=== PATIENT | female | born 1975 | race American Indian/Alaskan Native ===

== ENCOUNTER 2021-02-20 05:59 | Observation (INO) | payer BC ==
[2021-02-14 13:11] LABS: Hematocrit 34.9 % (30.3-42.9); Hemoglobin 11.5 gm/dl (10.1-14.3); Mean Corpuscular HGB Conc 33 % (30-34); Mean Corpuscular Volume 86 fl (79-97); Platelet Count 439 K/mm3 (140-440); Red Blood Count 4.07 M/mm3 (3.65-5.03); Red Cell Distribution Width 15.5 % (13.2-15.2)
[2021-02-14 15:48] LABS: Total Cells Counted 100
[2021-02-14 15:49] LABS: Ovalocytes 3+; Platelet Estimate Consistent w Auto
--- NOTE | 2021-02-19 14:32 | History and Physical Report ---
History of Present Illness Date of examination: 02/14/21 Chief complaint: Menorhagia, dysmenorrhea and Genetic susceptibility to malignant neoplasm of ovary History of present illness: Past History : 3 Term Births: 2 Living Children: 2 Spont. 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 Allergies-seasonal Past Surgical History: Reviewed history from 12/08/2020 and no changes required: Tubal Ligation (2000) Family History Summary: Reviewed history Last on 11/01/2020 and no changes required:02/19/2021 Mother - Has Family History Breast Cancer - +BRCA - Entered On: 04/15/2019 Other Family Member - Has No Family History of Uterine Cancer - Entered On: 11/16/2018 Other Family Member - Has No Family History of Small Bowel Cancer - Entered On: 11/16/2018 Other Family Member - Has No Family History of Stomach Cancer - Entered On: 11/16/2018 Other Family Member - Has No Family History of Pancreatic Cancer - Entered On: 11/16/2018 Other Family Member - Has No Family History of Ovarvian Cancer - Entered On: 11/16/2018 Other Family Member - Has No Family History of Kidney/Urinary Tract Cancer - Entered On: 11/16/2018 Other Family Member - Has No Family History of Spontaneous DVT-PE - Entered On: 11/16/2018 Other Family Member - Has No Family History of Brain Cancer - Entered On: 11/16/2018 Other Family Member - Has No Family History of Biliary Tract Cancer - Entered On: 11/16/2018 MGM - Has Family History Breast Cancer - diagnosed age 35, age45 - Entered On: 11/16/2018 General Comments - FH: Maternal aunt Throat cancer Social History: Reviewed history from 11/14/2017 and no changes required: Patient is single Smoking History: Patient has never smoked. Risk Factors: Smoked Tobacco Use: Never smoker Smokeless Tobacco Use: Never Passive Smoke Exposure: no HIV High Risk Behavior: no Exercise: yes Times/wk: 2 Seatbelt Use: 100 % PAP Smear History: Date of Last PAP Smear: 11/01/2020 Results: Normal Alcohol Use: yes Drinks per day: social Drug Use: no Previous Tobacco Use: Signed On - 12/08/2020 Smoked Tobacco Use: Never smoker Smokeless Tobacco Use: Never Passive Smoke Exposure: no HIV High Risk Behavior: no Exercise: yes Times/wk: 2 Type of Exercise: walking Seatbelt Use: 100 % Alcohol Use: yes Type: occ Drinks per day: social Drug Use: no Review of Systems Complains of menorrhagia and painful periods. Denies vaginal discharge, incontinence, dysuria, hematuria, urinary frequency, amenorrhea, abnormal vaginal bleeding, pelvic pain, genital sores, decreased libido, painful sex, urinary urgency, hot flashes, vaginal dryness, vaginal itching and vaginal odor. The review of systems is negative for General, CV, Resp, GI, Endo, Breast, MS, Derm, Neuro, Psych, Eyes, ENT, Allergy and Heme. Physical Exam Appearance: well developed, well nourished, no acute distress Other Exams Lungs: no rales, rhonchi, or wheezes Heart: S1, S2, no murmur, rub, or gallop Genitourinary Exam Uterus: deferred for EUA Impression & Recommendations: Problem # 1: Menorrhagia (ICD-626.2) ([id number]) Diagnosis explained to patient . Discussed with patient various medical, surgical and radiological therapies common for treatment including, but not limi tam to, hysterectomy and endometrial ablation. Discussed risks and benefits of laparotomy, laparoscopy, vaginal and robotic assisted approaches for hysterectomies. Patient desires definitive treatment in the form of robot assisted laparoscopic total hysterectomy with removal of both fallopian tubes and ovaries. The risks and alternatives for this surgery were reviewed with the patient. She was informed of the risks of the surgery including, but not limited to, pain, infection, bleeding possibly heavy enough to require a blood transfusion with associated risks of infections (hepatitis and HIV) and transfusion reactions, possible damage to bowel, bladder or ureter(s) and surrounding organs. . Patient understands that this surgery will make her sterile. Indications to abort a robotic/laparoscopic procedure and perform an open procedure were explained. Patient understands once her ovaries are removed she will become menopausal. Discussed use of hormone therapy. Risks reviewed with patient but not limited to:CVA, [place], DVT, PE, Breast cancer, liver problems. Patient counseled that she should use the lowest effective dose of HRT/ERT for the shortest period of time Other options for offered, encouraged to exercise, increase water intake, decrease Na+ and carbohydrate intake. Patient advised the small risks of spreading of malignancy if morcellation is required during the surgery patient understands and approves performing if necessary. Questions answered. Consent reviewed and signed The patient was instructed/informed the following: The normal length of hospital stay for this procedure. Nothing to eat or drink after midnight the evening prior to surgery.. Pre-op instruction sheets given. Wound care instructions given. Problem # 2: Dysmenorrhea (ICD-625.3) (WGX16-V68.6) It was extensively explained to her that her pain may persist, recur or change in nature due to the difficulty with determining the exact etiology(ies) of chronic pelvic pain or development of adhesions. She declined other treatment options at this time. Questions were encouraged and answered Problem # 3: Genetic susceptibility to malignant neoplasm of ovary (ICD-V84.02) (CFO06-L55.02) Will hold HRT at this time and she will discuss usage with her breast surgeon. Orders: ] ] Medications and Allergies Allergies Allergy/AdvReac Type Severity Reaction Status Date / Time No Known Allergies Allergy Verified 02/13/21 19:08 Home Medications Medication Instructions Recorded Confirmed Last Taken Type No Known Home Medications [No 02/13/21 02/13/21 Unknown History Reported Home Medications] Active Meds: Active Medications Cefazolin Sodium 3 gm/ Sodium (Chloride) 100 mls @ 100 mls/30 min IV PREOP NR; Protocol Exam Vital Signs Temp Pulse Resp BP Pulse Ox 98.3 F 85 16 111/81 99 02/14/21 11:05 02/14/21 11:05 02/14/21 11:05 02/14/21 11:05 02/14/21 11:05 Results - Labs 02/14/21 06:00 Assessment and Plan - Patient Problems (1) Excessive and frequent menstruation with regular cycle Status: Acute (2) Dysmenorrhea Status: Acute (3) Genetic susceptibility to malignant neoplasm of ovary Status: Chronic (4) Body mass index (BMI) of 50-59.9 in adult Status: Chronic
[2021-02-20] MEDS ORDERED: BACTERIOSTATIC SODIUM CHLORIDE 0.9% 30 ML VIAL INFILTRATI ONE (06:28)
[2021-02-20] MEDS ORDERED: LACTATED RINGERS 1,000 ML IV SCH ×2 (06:30→13:30)
[2021-02-20] MEDS ORDERED: ONDANSETRON 4 MG/2 ML INJ ONE ×2 (07:10→10:48)
[2021-02-20] MEDS ORDERED: LIDOCAINE MPF (2%) 20 MG/1 ML VIAL 5 ML ONE (07:10)
[2021-02-20] MEDS ORDERED: GLYCOPYRROLATE 0.4 MG/2 ML INJ ONE (07:11)
[2021-02-20] MEDS ORDERED: ROCURONIUM 50 MG/5 ML INJ IV ONE ×2 (07:11→09:00)
[2021-02-20] MEDS ORDERED: fentaNYL 100 MCG/2 ML INJ ONE ×2 (07:15→07:37)
[2021-02-20] MEDS ORDERED: KETAMINE/STERILE WATER 50 MG/ML SYRINGE ONE (07:15)
[2021-02-20] MEDS ORDERED: propofoL 200 MG/20 ML VIAL IV ONE (07:15)
[2021-02-20] MEDS ORDERED: NEOMY 40 MG/POLYMYXIN B 200,000 UNITS/ML (GU) AMPULE IR ONE (07:26)
--- NOTE | 2021-02-20 07:30 | Anesthesia Consultation ---
Anesthesia Consult and Med Hx Date of service: 02/20/21 - Airway Anesthetic Teeth Evaluation: Good ROM Head & Neck: Adequate Mental/Hyoid Distance: Adequate Mallampati Class: Class II Intubation Access Assessment: Probably Good - Pulmonary Exam CTA: Yes - Cardiac Exam Cardiac Exam: RRR - Pre-Operative Health Status ASA Pre-Surgery Classification: ASA2 Proposed Anesthetic Plan: General Nerve Block: Bilateral TAP block - Pulmonary Hx Smoking: No Hx Asthma: No - Cardiovascular System Hx Hypertension: No - Central Nervous System Hx Neuromuscular Disorder: No Hx Psychiatric Problems: No - Other Systems Hx Alcohol Use: Yes (Occas) Hx Substance Use: No Hx Cancer: No Hx Obesity: Yes (BMI 50) - Additional Comments Anesthesia Medical History Comments: No history of anesthesia complications
--- NOTE | 2021-02-20 07:31 | Anesthesia Day of Surgery ---
Anesthesia Day of Surgery - Day of Surgery Patient Examined: Yes Patient H&P Reviewed: Yes Patient is NPO: Yes
[2021-02-20] MEDS ORDERED: MIDAZOLAM 2 MG/2 ML INJ ONE ×2 (07:37→07:51)
[2021-02-20] MEDS ORDERED: ACETAMINOPHEN 500 MG TAB ONE (07:38)
[2021-02-20] MEDS ORDERED: CELECOXIB 200 MG CAP ONE (07:38)
[2021-02-20] MEDS ORDERED: BUPIVACAINE/PF (0.25%) 2.5 MG/ML 30 ML VIAL INFILTRATI ONE (07:39)
[2021-02-20] MEDS ORDERED: dexAMETHasone 4 MG/ML VIAL ONE (07:39)
[2021-02-20] MEDS ORDERED: MAGNESIUM OXIDE 400 MG TAB PO ONE (07:39)
[2021-02-20] MEDS ORDERED: dexAMETHasone 20 MG/5 ML VIAL ONE (08:58)
[2021-02-20] MEDS ORDERED: ACETAMINOPHEN 500 MG TAB PO SCH (09:00)
[2021-02-20] MEDS ORDERED: MAGNESIUM OXIDE 400 MG TAB PO SCH (09:00)
[2021-02-20] MEDS ORDERED: CELECOXIB 200 MG CAP PO NR (09:00)
[2021-02-20] MEDS ORDERED: BUPIVACAINE/PF (0.5%) 5 MG/1 ML 30 ML VIAL INFILTRATI ONE ×2 (09:36→10:48)
[2021-02-20] MEDS ORDERED: NEOSTIGMINE 10MG/10 ML INJ MDV ONE (10:06)
[2021-02-20] MEDS ORDERED: SODIUM CHLORIDE 0.9% IRRIG SOLN 2000 ML IR ONE (10:49)
[2021-02-20] MEDS ORDERED: LACTATED RINGERS 1,000 ML ONE (10:53)
--- NOTE | 2021-02-20 11:14 | Post Operative Note ---
Pre-op diagnosis: menorrhagia, dysmenorrhea, genetic susceptibility to ovarian cancer Post-op diagnosis: other (Pelvic adhesions, morbid obesity) Procedure: Robotic assisted laparoscopic total hysterectomy with bilateral salpingo oophorectomy, lysis of adhesions, removal of displaced Filshie clips, repair of vaginal laceration Anesthesia: ALY Surgeon: PHILLIP WOLFF (Joellen Irizarry) Estimated blood loss: 50-100ml Pathology: list (Uterus cervix both ovaries and fallopian tubes and Filshie clips) Specimen disposition: to lab Condition: stable Disposition: PACU
[2021-02-20] MEDS ORDERED: KETOROLAC 30 MG/1 ML INJ ONE (11:21)
[2021-02-20] MEDS ORDERED: HYDROmorphone 1 MG/1 ML INJ ONE ×2 (11:27→11:37)
[2021-02-20] MEDS: HYDROmorphone 1 MG/1 ML INJ IV PRN ×4 (11:30→12:10)
--- NOTE | 2021-02-20 11:47 | Operative Report ---
Operative Report Operative Report: Date: 02/20/2021 Preoperative diagnosis: 1. Menorrhagia 2. Dysmenorrhea 3. Body mass index of 50.2 kg/m 4. Genetic susceptibility to malignant neoplasm of ovary Postoperative diagnosis: 1. Menorrhagia 2. Dysmenorrhea 3. Body mass index of 50.2 kg/m 4. Genetic susceptibility to malignant neoplasm of ovary 5. Pelvic adhesion 6. Vaginal laceration 7. Displaced Filshie clips Procedure: 1. Robotic-assisted laparoscopic total hysterectomy with bilateral Salpingo-oophorectomy 2. Lysis of adhesions 3. Removal of Filshie clips 4. Repair of vaginal laceration Surgeon: Carlene Spann MD Fabric Designer: Joellen Irizarry CSA Anesthesiologist: Dr. Robins Anesthesia: General endotracheal anesthesia EBL: Approximately 100 mL Findings: EUA: Uterus unable to be palpated due to obesity. Uterus was sounded to 12 cm. Grossly normal tubes and ovaries. Procedure: Patient was taken to the OR and placed in the supine position. General anesthesia was induced and an oral gastric tube was placed. Her neck and head were placed on foam support. Foam eye protection with goggles were secured in place. Then foam face protection was placed and secured. Foam shoulder pads were then positioned on her shoulders for Trendelenburg p ositioning. She was then placed in dorsolithotomy position. Exam under anesthesia as above. The abdomen and vagina were then prepped and draped in the usual sterile fashion. Timeout was performed. A Chaney catheter was inserted into the bladder with drainage of clear yellow urine. The operative speculum was introduced into the vagina and the anterior lip of the cervix was grasped with single-toothed tenaculum. The uterus was sounded to 12 cm. The cervix was progressively dilated to allow the large V care uterine manipulator. The bulb of the manipulator was inflated and the speculum and tenaculum were removed. The cup of the manipulator was placed around the cervix and the blue occluder of the manipulator was properly positioned in the vagina and secured. A laparotomy sponge that was saturated with a solution of polymyxin and saline was placed in the vagina to ensure pneumoperitoneum. Sterile gloves were placed and attention was turned to the abdomen. A 10 mm midline vertical supraumbilical incision was made approximately 10 cm superior to the elevated fundus of the uterus. A 10-12 mm trocar with the laparoscope and camera attached was introduced through this incision under direct visualization. The abdomen was insufflated. No obvious bowel, bladder, ureteral, or major vascular injury was noted. The patient was then placed in steep Trendelenburg position and the following trochars were placed under direct visualization: 8 mm robotic trochars were placed through incisions made in the bilateral midclavicular lower abdominal region approximately 10 cm lateral to the midline incision, and a 5 mm trocar was placed through an incision made in the right lower lateral pelvis. The 10 mm laparoscope was then replaced by a 5 mm laparoscope that was placed through the 5 millimeter lateral trocar. The 12 mm trocar was then removed and the Theodore Rodríguez fascial closure device was placed through the incision and a 0 Vicryl was placed through the fascia. Once the suture was secured the 12 mm trocar was reintroduced. Once the trochars were in the appropriate positions, the da Lupe robot system was engaged. The EndoShears and bipolar device was placed through the 8 mm trochars and positioned then attention was turned to the console. Pelvic washings were obtained and sent to pathology for permanent. The epiploica of the bowel on the left was adhesed to the left fallopian tube. Adhesions were released with both blunt and sharp dissection. then the utero-ovarian ligaments were clamped, cauterized and incised bilaterally using 30 W of energy. Then the round ligaments were clamped, cauterized and incised bilaterally. The anterior leaf of the broad ligament was elevated and with careful blunt and sharp dissection the bladder flap was created and dissected away from the lower uterine segment and cervix. While creating the bladder flap the Filshie clips were noted to be adhesed to the midline lower uterine segment and cervix under the bladder flap. With careful sharp and blunt dissection the Filshie clips were removed. The remainder of the bladder flap was created. No obvious bladder injury was noted. The posterior leaf of the broad ligament was dissected away from the uterine vessels. The cup of the uterine manipulator was palpated both anteriorly and posteriorly. The bladder was further dissected away from the lower uterine segment. The uterine vessels were then clamped and cauterized bilaterally. Blanching of the uterus was then noted. Attention was again turned to the anterior lower uterine segment and the bladder was confirmed to be away from the operative field. Then attention was turned again to the posterior where the cup of the manipulator was palpated and a colpotomy was performed down to the cup. The incision was extended in the lateral position to the uterine vessels that were again clamped and cauterized and incised. Continuing along the cup of the manipulator in a circumferential manner the colpotomy was completed. The uterus and cervix were then removed through the vaginal incision. The pelvis was irrigated with warm normal saline. A moist laparotomy sponge was placed in the vagina to maintain pneumoperitoneum. Then attention was turned to the adnexa where the ureters were noted to be away from the operative field. The left ovary with tube was elevated and the infundibulopelvic ligament was clamped, cauterized, incised and released from the pelvic sidewall. The ovary with tubes were removed through the vagina. The same procedure was performed on the right fallopian tube and ovary. No obvious ureteral injury was noted. The vagina cuff was reapproximated using V LOC 180 suture. Then a J stitch was performed to secure the suture. Again the pelvis was copiously irrigated with polymixin in warm normal saline. The laparotomy sponge was removed from the vagina. No obvious evidence of bowel, bladder, ureteral, or major vascular injury was noted. The pelvis was irrigated with warm normal saline. Once hemostasis was noted, Maryjane was applied to the operative field to ensure hemostasis. Then the instruments were removed, the robot was disengaged. The 10-12 mm trocar was removed and the fascia was ligated with the 0 Vicryl suture that was placed at the beginning of the procedure. The patient was taken out of Trendelenburg position, the abdomen was desufflated, the remaining trochars were removed. Incisions were reapproximated using 4-0 Monocryl in a subcuticular manner. The incisions were infused with half percent Marcaine without epinephrine. Surgiseal was placed over the other incisions. Hemostasis was noted. The vagina was then inspected, the cuff was palpated and visualized to be intact however bleeding was noted from a midline vertical proximal vaginal laceration. This laceration was repaired with 3-0 Vicryl on a SH needle in a [id number] manner x2. Hemostasis was noted. Clear yellow urine was draining into the Chaney bag from the bladder at the end of the procedure. Counts were correct 3. Patient was taken to recovery room in stable condition.
[2021-02-20] MEDS ORDERED: diphenhydrAMINE 50 MG/ML VIAL ONE (12:25)
[2021-02-20] MEDS ORDERED: MEPERIDINE 25 MG/1 ML INJ ONE (12:25)
[2021-02-20] MEDS ORDERED: MEPERIDINE 25 MG/1 ML INJ IV PRN (12:25)
[2021-02-20] MEDS ORDERED: diphenhydrAMINE 50 MG/ML VIAL IV PRN (12:25)
[2021-02-20] MEDS ORDERED: METOCLOPRAMIDE 10 MG/2 ML INJ IV PRN (13:30)
[2021-02-20] MEDS ORDERED: MORPHINE 4 MG/1 ML INJ IV PRN (14:00)
[2021-02-20] MEDS ORDERED: ONDANSETRON 4 MG/2 ML INJ IV PRN (14:00)
[2021-02-20] MEDS ORDERED: traMADol 50 MG TAB PO PRN (14:00)
[2021-02-20] MEDS ORDERED: ONDANSETRON 4 MG ODT TAB PO PRN (14:00)
[2021-02-20] MEDS ORDERED: IBUPROFEN 800 MG TAB PO PRN (14:00)
[2021-02-20] MEDS ORDERED: MORPHINE 2 MG/1 ML INJ IV PRN (14:00)
[2021-02-20] MEDS ORDERED: ACETAMINOPHEN 325 MG TAB PO SCH (14:30)
[2021-02-20] MEDS: ACETAMINOPHEN 500 MG TAB PO SCH ×2 (15:23→20:30)
[2021-02-20] MEDS ORDERED: ceFAZolin/NS 1 GM/50 ML 1 GM/50 ML BAG IV SCH (16:00)
[2021-02-20] MEDS: KETOROLAC 30 MG/1 ML INJ IV SCH (17:29)
--- NOTE | 2021-02-20 17:54 | Post Anesthesia Evaluation ---
- Post Anesthesia Evaluation Patient Participated: Yes Airway Patent: Yes Stable Respiratory Function: Yes Nausea/Vomiting: No Temp > 96.8F: Yes Pain Manageable: Yes Adequeate Hydration: Yes Anesthesia Complications: No Block Receding Appropriately: Not Applicable Patient on Ventilator: No
--- NOTE | 2021-02-20 18:41 | Progress Note ---
Assessment and Plan Procedure explained, plan of care discussed. She voiced understanding - Patient Problems (1) Excessive and frequent menstruation with regular cycle Current Visit: No Status: Resolved (2) Dysmenorrhea Current Visit: No Status: Resolved (3) Genetic susceptibility to malignant neoplasm of ovary Current Visit: No Status: Chronic (4) Body mass index (BMI) of 50-59.9 in adult Current Visit: No Status: Chronic (5) History of robot-assisted laparoscopic hysterectomy Current Visit: Yes Status: Acute (6) S/P bilateral salpingo-oophorectomy Current Visit: Yes Status: Acute Subjective - Subjective Interval history: Past History : 3 Term Births: 2 Living Children: 2 Spont. 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 Allergies-seasonal Past Surgical History: Reviewed history from 12/08/2020 and no changes required: Tubal Ligation (2000) Family History Summary: Reviewed history Last on 11/01/2020 and no changes required:02/19/2021 Mother - Has Family History Breast Cancer - +BRCA - Entered On: 04/15/2019 Other Family Member - Has No Family History of Uterine Cancer - Entered On: 11/16/2018 Other Family Member - Has No Family History of Small Bowel Cancer - Entered On: 11/16/2018 Other Family Member - Has No Family History of Stomach Cancer - Entered On: 11/16/2018 Other Family Member - Has No Family History of Pancreatic Cancer - Entered On: 11/16/2018 Other Family Member - Has No Family History of Ovarvian Cancer - Entered On: 11/16/2018 Other Family Member - Has No Family History of Kidney/Urinary Tract Cancer - Entered On: 11/16/2018 Other Family Member - Has No Family History of Spontaneous DVT-PE - Entered On: 11/16/2018 Other Family Member - Has No Family History of Brain Cancer - Entered On: 11/16/2018 Other Family Member - Has No Family History of Biliary Tract Cancer - Entered On: 11/16/2018 MGM - Has Family History Breast Cancer - diagnosed age 35, age45 - Entered On: 11/16/2018 General Comments - FH: Maternal aunt Throat cancer Social History: Reviewed history from 11/14/2017 and no changes required: Patient is single Smoking History: Patient has never smoked. Risk Factors: Smoked Tobacco Use: Never smoker Smokeless Tobacco Use: Never Passive Smoke Exposure: no HIV High Risk Behavior: no Exercise: yes Times/wk: 2 Seatbelt Use: 100 % PAP Smear History: Date of Last PAP Smear: 11/01/2020 Results: Normal Alcohol Use: yes Drinks per day: social Drug Use: no Previous Tobacco Use: Signed On - 12/08/2020 Smoked Tobacco Use: Never smoker Smokeless Tobacco Use: Never Passive Smoke Exposure: no HIV High Risk Behavior: no Exercise: yes Times/wk: 2 Type of Exercise: walking Seatbelt Use: 100 % Alcohol Use: yes Type: occ Drinks per day: social Drug Use: no Review of Systems Complains of menorrhagia and painful periods. Denies vaginal discharge, incontinence, dysuria, hematuria, urinary fr equency, amenorrhea, abnormal vaginal bleeding, pelvic pain, genital sores, decreased libido, painful sex, urinary urgency, hot flashes, vaginal dryness, vaginal itching and vaginal odor. The review of systems is negative for General, CV, Resp, GI, Endo, Breast, MS, Derm, Neuro, Psych, Eyes, ENT, Allergy and Heme. Physical Exam Appearance: well developed, well nourished, no acute distress Other Exams Lungs: no rales, rhonchi, or wheezes Heart: S1, S2, no murmur, rub, or gallop Genitourinary Exam Uterus: deferred for EUA Impression & Recommendations: Problem # 1: Menorrhagia (ICD-626.2) ([id number]) Diagnosis explained to patient . Discussed with patient various medical, surgical and radiological therapies common for treatment including, but not limited to, hysterectomy and endometrial ablation. Discussed risks and benefits of laparotomy, laparoscopy, vaginal and robotic assisted approaches for hysterectomies. Patient desires definitive treatment in the form of robot a ssisted laparoscopic total hysterectomy with removal of both fallopian tubes and ovaries. The risks and alternatives for this surgery were reviewed with the patient. She was informed of the risks of the surgery including, but not limited to, pain, infection, bleeding possibly heavy enough to require a blood transfusion with associated risks of infections (hepatitis and HIV) and transfusion reactions, possible damage to bowel, bladder or ureter(s) and surrounding organs. . Patient understands that this surgery will make her sterile. Indications to abort a robotic/laparoscopic procedure and perform an open procedure were explained. Patient understands once her ovaries are removed she will become menopausal. Discussed use of hormone therapy. Risks reviewed with patient but not limited to:CVA, [place], DVT, PE, Breast cancer, liver problems. Patient counseled that she should use the lowest effective dose of HRT/ERT for the shortest period of time Other options for offered, encouraged to exercise, increase water intake, decrease Na+ and carbohydrate intake. Patient advised the small risks of spreading of malignancy if morcellation is required during the surgery patient understands and approves performing if necessary. Questions answered. Consent reviewed and signed The patient was instructed/informed the following: The normal length of hospital stay for this procedure. Nothing to eat or drink after midnight the evening prior to surgery.. Pre-op instruction sheets given. Wound care instructions given. Problem # 2: Dysmenorrhea (ICD-625.3) ([id number]) It was extensively explained to her that her pain may persist, recur or change in nature due to the difficulty with determining the exact etiology(ies) of chronic pelvic pain or development of adhesions. She declined other treatment options at this time. Questions were encouraged and answered Problem # 3: Genetic susceptibility to malignant neoplasm of ovary (ICD-V84.02) (FKW31-T03.02) Will hold HRT at this time and she will discuss usage with her breast surgeon. Orders: ] ] Objective - Vital Signs Latest vital signs: Vital Signs Temp Pulse Resp BP Pulse Ox 02/20/21 16:47 97.6 F 95 H 18 155/81 100 02/20/21 14:35 66 96 02/20/21 12:59 97.4 F L 98 H 15 152/83 100 02/20/21 12:55 100 02/20/21 12:10 16 02/20/21 12:05 74 15 149/75 100 02/20/21 12:00 16 02/20/21 11:40 16 02/20/21 11:30 16 02/20/21 11:20 16 02/20/21 08:20 84 16 120/78 100 02/20/21 08:15 72 16 122/80 100 02/20/21 08:10 78 14 127/73 100 02/20/21 08:05 87 15 131/73 100 02/20/21 08:00 83 13 152/83 99 02/20/21 07:55 90 12 146/70 100 02/20/21 07:50 85 15 155/81 100 02/20/21 07:01 97.7 F 77 20 149/89 100 Intake and Output 02/20/21 02/20/21 02/20/21 06:59 14:59 22:59 Intake Total 350 Output Total 225 100 Balance 125 -100 Intake: IV 350 Output: Urine 225 100 Indwelling Catheter 100 Other: Total, Output Amount 100 Voiding Method Toilet
[2021-02-20] MEDS ORDERED: FAMOTIDINE 20 MG/2 ML INJ IV SCH (22:00)
[2021-02-21] MEDS: KETOROLAC 30 MG/1 ML INJ IV SCH (05:33)
[2021-02-21 05:38] LABS: Hematocrit 32.9 % (30.3-42.9)
[2021-02-21] MEDS ORDERED: oxyCODONE /ACETAMINOPHEN 5-325MG TAB ONE (08:05)
--- NOTE | 2021-02-21 10:04 | Discharge Summary ---
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 (4) Body mass index (BMI) of 50-59.9 in adult Status: Chronic (5) History of robot-assisted laparoscopic hysterectomy Status: Acute (6) S/P bilateral salpingo-oophorectomy Status: Acute Core Measure Documentation - Palliative Care Palliative Care/ Comfort Measures: Not Applicable - Core Measures Any of the following diagnoses?: none Exam - Constitutional Vitals: Temp Pulse Resp BP Pulse Ox 98.8 F 87 20 129/69 96 02/21/21 07:46 02/21/21 07:46 02/21/21 07:46 02/21/21 07:46 02/21/21 07:46 General appearance: Present: no acute distress - Respiratory Respiratory effort: normal Respiratory: bilateral: CTA - Cardiovascular Rhythm: regular - Extremities Extremities: no ischemia, No edema - Abdominal General gastrointestinal: Present: soft, non-tender, non-distended, normal bowel sounds - Integumentary Integumentary: Present: clear, warm, dry (incisions c/d/i) - Psychiatric Psychiatric: appropriate mood/affect, intact judgment & insight, memory intact, cooperative Plan Activity: other (No sex, no driving) Weight Bearing Status: Weight Bear as Tolerated Diet: regular Wound: open to air, keep clean and dry Special Instructions: no heavy lifting Care Plan Goals: [] Smoking cessation referral if applicable(refer to patient education folder for contact #) Call your doctor immediately for: * Fever > 100.5 * Heavy vaginal bleeding ( >1 pad per hour) * Severe persistent headache * Shortness of breath * Reddened, hot, painful area to leg * Drainage or odor from incision. * Keep incision clean and dry at all times and follow doctor's instructions regarding bathing/showering Follow up with: PHILLIP WOLFF MD [Staff Physician] - 7 Days (Call office for appointment) Forms: [facility] Discharge Summary Prescriptions: Ibuprofen [Motrin 800 MG tab] 800 mg PO Q8H PRN #30 tablet PRN Reason: Pain, Moderate (4-6) oxyCODONE /ACETAMINOPHEN [Percocet 5/325 mg] 1 - 2 tab PO Q6H PRN #14 tablet PRN Reason: Pain, severe (7-10)
[2021-02-21] MEDS ORDERED: oxyCODONE /ACETAMINOPHEN 5-325MG TAB PO PRN (12:30)
[2021-02-21 13:40] VITALS: BP 126/61
== END 2021-02-21 14:45 | disposition home or self-care (01) ==
LOC: OR 05:59 → OB 11:14
PROVIDERS: ADMIT Obstetrics & Gynecology; ATTEND Obstetrics & Gynecology
DX: N92.0 Excessive and frequent menstruation with regular cycle (principal); Z20.822 Contact with and (suspected) exposure to COVID-19; N94.6 Dysmenorrhea, unspecified; C56.9 Malignant neoplasm of unspecified ovary; Z90.710 Acquired absence of both cervix and uterus; Z90.722 Acquired absence of ovaries, bilateral; Z98.51 Tubal ligation status; Z68.43 Body mass index [BMI] 50.0-59.9, adult; Z15.02 Genetic susceptibility to malignant neoplasm of ovary
CPT/HCPCS: 36415; 58573; 64450; 81025; 85014; 85018; 85025; 86850; 86900; 86901; 88112; 88302; 88305; 88307; 96365; 96375; 96376; A4217; G0378; J0690; J1100; J1170; J1885; J2250; J2270; J2704; J2710; J3010; J3490; J7120; S2900; U0003; 85007; 88300; J1200; J2175; J2405